=== PATIENT | male | born 1965 | race Caucasian/White ===

== ENCOUNTER 2021-03-26 17:49 | Observation (INO) | payer OTHER ==
[~2021-03-26 17:49] MED LIST: Iopamidol-370 76% 500 ML 1 ML ONE
[2021-03-26] MEDS ORDERED: Dexamethasone 10 MG/ML VIAL ONE (18:31)
[2021-03-26] MEDS ORDERED: Albuterol 200 PUFF (6.7GM INHALER) ONE (18:31)
[2021-03-26] MEDS ORDERED: Acetaminophen 500 MG TAB ONE (18:35)
[2021-03-26 19:05] LABS: #Eosinphils 0.1 thou/uL (0.0-0.7); #Lymphocytes 0.9 thou/uL (1.20-3.40); #Monocytes 0.6 thou/uL (0.11-0.59); #Neutrophils 3.6 thou/uL (1.40-6.50); %Basophils 0.1 % (0.0-1.0); %Eosinophils 1.4 % (0.0-10.0); %Lymphocytes 16.6 % (21.0-51.0); %Neutrophils 69.9 % (42.0-75.0); Hemoglobin 13.3 g/dL (14.0-18.0); Mean Corpuscular HGB CONC 32.8 g/dL (32.0-36.0); Mean Corpuscular Volume 94.4 fL (78.0-98.0); Mean Platelet Volume 7.4 fL (7.4-10.4); Platelet Count 187 thou/uL (130-400); Red Blood Cell (RBC) Count 4.29 mill/uL (4.70-6.10); White Blood Cell (WBC) Count 5.1 thou/uL (4.8-10.8)
[2021-03-26 19:26] LABS: ALT (SGPT) 133 U/L (8-55); AST (SGOT) 103 U/L (5-34); Albumin 3.1 g/dL (3.5-5.0); Alkaline Phosphatase 89 U/L (40-110); Anion Gap 14 mmol/L (10-20); BUN (Urea Nitrogen) 12 mg/dL (8.4-25.7); Bilirubin, Total 0.6 mg/dL (0.2-1.2); Calc. Creatinine Clearance 0 mL/min (70-130); Calcium 8.1 mg/dL (7.8-10.44); Carbon Dioxide 23 mmol/L (22-29); Chloride 102 mmol/L (98-107); Glucose 97 mg/dL (70-105); Potassium 3.7 mmol/L (3.5-5.1); Protein, Total 6.1 g/dL (6.0-8.3); Sodium 135 mmol/L (136-145)
== END 2021-03-26 23:30 | disposition home or self-care (01) ==
LOC: ERS 17:49 → ERHOLD 22:00
PROVIDERS: ADMIT Family Medicine; ATTEND Family Medicine
DX: U07.1 COVID-19 (principal); J12.82 Pneumonia due to coronavirus disease 2019; F17.220 Nicotine dependence, chewing tobacco, uncomplicated; Z88.1 Allergy status to other antibiotic agents
CPT/HCPCS: 36415; 71045; 71275; 80053; 83605; 85025; 87040; 96374; G0378; J1100; Q9967

== ENCOUNTER 2022-11-25 11:54 | Outpatient (CLI) | payer OTHER | END 2022-11-25 11:55 | disposition home or self-care (01) | LOC: SCSRAD 11:54 | PROVIDERS: ATTEND Nurse Practitioner Family | DX: J06.9 Acute upper respiratory infection, unspecified (principal) | CPT/HCPCS: 71046 ==

== ENCOUNTER 2025-10-15 10:45 | Outpatient (CLI) | payer OTHER | END 2025-10-15 10:46 | disposition home or self-care (01) | LOC: SCSRAD 10:45 | PROVIDERS: ATTEND Nurse Practitioner Family | DX: J18.9 Pneumonia, unspecified organism (principal) | CPT/HCPCS: 71046 ==